=== PATIENT | male | born 1960 | race Caucasian/White ===

== ENCOUNTER → 2020-08-20 | Outpatient (CLI) | payer BC ==
--- NOTE | 2020-08-20 16:13 | XR ---
EXAMINATION TYPE: XR lumbosacral spine min 4V DATE OF EXAM: 08/20/2020 Comparison: None Clinical History: 60-year-old male [id number] SCIATICA RT SIDE Findings: Vertebral body heights are preserved and alignment is maintained. Facet arthropathy lower lumbar spin e. No pars interarticularis defect. 5 lumbar type vertebral bodies. Mild endplate spondylosis through out. Impression: Facet arthropathy mid to lower lumbar spine. No vertebral compression collapse or malalignment. Mild degenerative disc disease.
== END | disposition home or self-care (01) ==
LOC: RADXRYALE 14:36
PROVIDERS: ATTEND Internal Medicine
DX: M51.17 Intervertebral disc disorders with radiculopathy, lumbosacral region (principal); M47.26 Other spondylosis with radiculopathy, lumbar region
CPT/HCPCS: 72110

== ENCOUNTER → 2020-10-30 | Outpatient (CLI) | payer BC | END | disposition home or self-care (01) | LOC: LABWHC1 13:04 | PROVIDERS: ATTEND Internal Medicine | DX: R05 Cough (principal) | CPT/HCPCS: U0003; C9803; U0005 ==

== ENCOUNTER → 2020-11-06 | Outpatient (CLI) | payer BC ==
--- NOTE | 2020-11-06 15:03 | XR ---
EXAMINATION TYPE: XR chest 2V DATE OF EXAM: 11/06/2020 COMPARISON: Chest x-ray August 17, 2016 HISTORY: Cough and shortness of breath. TECHNIQUE: Frontal and lateral views of the chest are obtained. FINDINGS: There is mild chronic emphysematous and parenchymal changes without suspicious focal air s pace opacity, pleural effusion, or pneumothorax seen. The cardiac silhouette size is stable and with in normal limits. The osseous structures are intact. IMPRESSION: Chronic changes without acute pulmonary process.
== END | disposition home or self-care (01) ==
LOC: RADXRYALE 14:41
PROVIDERS: ATTEND Internal Medicine
DX: R91.8 Other nonspecific abnormal finding of lung field (principal)
CPT/HCPCS: 71046

== ENCOUNTER → 2022-01-06 | Outpatient (CLI) | payer BC ==
--- NOTE | 2022-01-06 08:46 | US ---
EXAMINATION TYPE: US liver DATE OF EXAM: 01/06/2022 COMPARISON: US CLINICAL HISTORY: R74.8 ABNORMAL SERUM ENZYMES. Abnormal LFT's EXAM MEASUREMENTS: Liver Length: 18.0 cm Gallbladder Wall: 0.2 cm CBD: 0.2 cm Right Kidney: 11.7 x 5.2 x 5.3 cm Pancreas: Obscured by bowel gas Liver: Enlarged, somewhat difficult to penetrate Gallbladder: Adenomyomatosis anterior wall Evidence for sonographic Solo's sign: No CBD: wnl Right Kidney: wnl, lower pole gassed out IMPRESSION: 1. Hepatomegaly with mild fatty infiltration. 2. Adenomyomatosis gallbladder wall
== END | disposition home or self-care (01) ==
LOC: RADUSWWP 07:00
PROVIDERS: ATTEND Internal Medicine
DX: K76.0 Fatty (change of) liver, not elsewhere classified (principal); R16.0 Hepatomegaly, not elsewhere classified; D13.5 Benign neoplasm of extrahepatic bile ducts
CPT/HCPCS: 76705

== ENCOUNTER → 2022-09-15 | Outpatient (CLI) | payer OTHER ==
--- NOTE | 2022-09-15 14:51 | XR ---
EXAMINATION TYPE: XR knee limited RT DATE OF EXAM: 09/15/2022 COMPARISON: NONE HISTORY: 62 year-old male M2 5.561, chronic pain TECHNIQUE: 2 views FINDINGS: No acute fracture, subluxation, dislocation. Mild scattered vascular calcifications. No kne e joint effusion. IMPRESSION: No acute osseous abnormality seen.
== END | disposition home or self-care (01) ==
LOC: RADXRMAIN 12:10
PROVIDERS: ATTEND Family Medicine
DX: M25.561 Pain in right knee (principal)

== ENCOUNTER → 2025-04-10 | Outpatient (CLI) | payer MEDICARE ==
[2025-04-10 13:59] VITALS: BP 163/79; PULSE 88; RESP 16; TEMP 98
--- NOTE | 2025-04-10 14:35 | P.CNPUL ---
History of Present Illness Consult date: 04/10/25 Chief complaint: hypersomnia History of present illness: This is a very pleasant 65-year-old male patient coming in to the sleep center accompanied by his due to concerns of sleep apnea. The patient was recently undergoing a colonoscopy and the patient started having prolonged apneas and oxygen desaturations. This was done under the effect of propofol. Based on that, there is a concern for sleep apnea and for that reason the patient was referred to the sleep center. The patient has loud chronic snoring. He has sleep fragmentation. He wakes up at least twice in the middle of the night to urinate. He goes to bed at 8 PM and he gets out of bed between 4 and 5 AM in the morning. 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 Since his [facility], the patient has gained significant amount of weight and the patient estimates around 30 pounds weight gain over the past 4 years. He is a former smoker and quit smoking back in 2019. No substance abuse. No alcoholism. He denies waking up choking or gasping for air. He has chronic fatigue and sleepiness during the day. He does not fall asleep while driving. No history of any motor vehicle accident because of feeling drowsy or sleepy. His current [place] score is at 6. No numbness or tingling in lower extremities. No restlessness although the patient has been tossing and turning in he has assumed various body positions during sleep. No history of any myocardial infarction. No history of atrial fibrillation. No staff congestion heart failure. Is known to have hypertension hyperlipidemia. He also has history of COPD maintained on Symbicort. The patient has no sleep paralysis. No hallucinations. No cataplexy. No signs or symptoms of any parasomnias. No previous history of stroke. He has history of hiatal hernia that was repaired surgically. No active reflux. Review of Systems Constitutional: Reports daytime sleepiness, Reports fatigue, Reports weight gain Eyes: denies as per HPI, denies blurred vision, denies bulging eye, denies decreased vision, denies diplopia, denies discharge, denies dry eye, denies irritation, denies itching, denies pain, denies photophobia, denies loss of peripheral vision, denies loss of vision, denies tunnel vision/blind spots Ears: deny: decreased hearing, ear discharge, earache, tinnitus Ears, nose, mouth and throat: Reports as per HPI Breasts: absent: as per HPI, gynecomastia Cardiovascular: Reports as per HPI Respiratory: Reports snoring Gastrointestinal: Reports as per HPI Genitourinary: Reports as per HPI Musculoskeletal: Reports as per HPI Musculoskeletal: absent: ankle pain, ankle stiffness, ankle swelling, as per HPI, elbow pain, elbow stiffness, elbow swelling, foot pain, foot stiffness, foot swelling, hand pain, hand stiffness, hand swelling, hip pain, hip stiffness, hip swelling, knee pain, knee stiffness, knee swelling, shoulder pain, shoulder stiffness, shoulder swelling, wrist pain, wrist stiffness, wrist swelling Integumentary: Reports as per HPI Neurological: Reports as per HPI Psychiatric: Reports change in sleep habits, Reports hypersomnia, Reports sleep disturbances Endocrine: Reports as per HPI Hematologic/Lymphatic: Reports as per HPI Allergic/Immunologic: Reports as per HPI Past Medical History Past Medical History: No Reported History, COPD, Hyperlipidemia, Hypertension History of Any Multi-Drug Resistant Organisms: None Reported Past Surgical History: Appendectomy, Orthopedic Surgery Additional Past Surgical History / Comment(s): rt knee sx. bilat catartacts Past Anesthesia/Blood Transfusion Reactions: Motion Sickness Past Alcohol Use History: Occasional Past Drug Use History: None Reported - Past Family History Father Family Medical History: Cancer Medications and Allergies Home Medications Medication Instructions Recorded Confirmed Type Budesonide/Formoterol Fumarate 160 mcg PO DAILY 04/10/25 04/10/25 History [Budesonide-Formoterol 160-4.5] Rosuvastatin [Crestor] 10 mg PO DAILY 04/10/25 04/10/25 History Valsartan 320 mg PO DAILY 04/10/25 04/10/25 History amLODIPine BES/OLMESARTAN MED 5 mg PO DAILY 04/10/25 04/10/25 History [amLODIPine BES/OLMESARTAN MED 5-20 mg] Allergies Allergy/AdvReac Type Severity Reaction Status Date / Time No Known Allergies Allergy Verified 12/28/14 11:00 Physical Exam Vitals: Vital Signs Temp Pulse Resp BP Pulse Ox 04/10/25 13:58 98 F 88 16 163/79 96 The patient appeared well nourished and normally developed. Vital signs as documented. The patient is morbidly obese with a BMI of 40.3. Head exam is unremarkable. No scleral icterus or corneal arcus noted. Neck is without jugular venous distension, thyromegaly, or carotid bruits. Carotid upstrokes are brisk bilaterally. Mallampati class IV with significant crowding of the posterior pharynx. Lungs are clear to auscultation and percussion. Cardiac exam reveals the PMI to be normally sized and situated. Rhythm is regular. First and second heart sounds normal. No murmurs, rubs or gallops. Abdominal exam reveals normal bowel sounds, no masses, no organomegaly and no aortic enlargement. Extremities are nonedematous and both femoral and pedal pulses are normal. Examination of the skin revealed no evidence of significant rashes, suspicious appearing nevi or other concerning lesions. Neurologically, the patient is awake and alert and the patient does not have any focal neurological deficit. Cranial nerves are essentially intact. Assessment and Plan Plan: Loud snoring, sleep fragmentation chronic fatigue and sleepiness with an [place] score of 6. High clinical suspicion for obstructive sleep apnea and the patient will need further investigation. BMI of 40.2 Mallampati class IV Hypertension Hyperlipidemia COPD, currently inactive and stable. Plan Encourage weight loss Optimize sleep hygiene measures Maintaining regular sleep schedule Avoid alcohol drinking at least 3 hours prior to going to bed Will set up this patient for a screening polysomnography and we will discuss treatment options accordingly.
== END ==
LOC: 3 N SLEEP 13:49
PROVIDERS: ATTEND Internal Medicine Critical Care Medicine
DX: G47.30 Sleep apnea, unspecified (principal); I10 Essential (primary) hypertension; E78.5 Hyperlipidemia, unspecified; J44.9 Chronic obstructive pulmonary disease, unspecified; F17.200 Nicotine dependence, unspecified, uncomplicated
CPT/HCPCS: 99211